=== PATIENT | female | born 1960 | race Caucasian/White ===

== ENCOUNTER 2016-12-07 20:23 | Emergency (ER) | payer OTHER, MEDICAID ==
[2016-12-07 22:22] VITALS: BP 133/95
== END 2016-12-07 22:22 | disposition home or self-care (01) ==
LOC: ED 20:23
DX: K29.70 Gastritis, unspecified, without bleeding (principal); R03.0 Elevated blood-pressure reading, without diagnosis of hypertension; Z88.0 Allergy status to penicillin; Z88.5 Allergy status to narcotic agent